=== PATIENT | female | born 1955 | race Hispanic/Latino ===

== ENCOUNTER 2020-05-17 16:02 | Emergency (ER) | payer OTHER, SELFPAY ==
[2020-05-17] MEDS ORDERED: Ondansetron ODT 4 MG TAB ONE (16:21)
[2020-05-17 16:41] LABS: Bilirubin Negative (Negative); Blood, Urine Trace (Negative); Clarity Cloudy (Clear); Glucose, Urine (Dipstick) Negative (Negative); Ketone, Urine Negative (Negative); Leukocyte Trace (Negative); Nitrite Positive (Negative); Protein, Urine (Dipstick) Negative (Neg-Trace); Specific Gravity, Urine 1.025 (1.005-1.030); Urobilinogen 0.2 mg/dL (Less than 2)
--- NOTE | 2020-05-17 16:42 | CT ---
EXAM: CT Lumbar Spine WO Con PROVIDED CLINICAL HISTORY: Low back pain COMPARISON: None FINDINGS: 5 nonrib-bearing lumbar-type vertebral bodies are demonstrated. There is slight retrolisthesis of L1 on L2 and L2 on L3. Vertebral body heights appear preserved. There is no evidence for fracture. Disc space height loss and endplate degenerative changes are seen at multiple levels, most conspicuou sly at L4-5. Lower lumbar spine facet arthritis changes are demonstrated. There is mild foraminal narrowing right of midline at L4-5 and L5-S1. No high-grade central canal stenosis is apparent by CT. The visualized extraspinal soft tissues demonstrate an unremarkable unenhanced CT appearance. IMPRESSION: Lumbar spine degenerative change, without evidence for an acute osseous abnormality.
[2020-05-17 16:43] LABS: Bacteria/HPF 3+ HPF (None Seen); RBC/HPF 0-3 HPF (0-3); Renal Epithelial 0-3 HPF (None Seen); Squamous Epithelial 0-3 HPF (0-3)
[2020-05-17] MEDS ORDERED: Cyclobenzaprine 10 MG TAB ONE (17:38)
== END 2020-05-17 17:40 | disposition home or self-care (01) ==
LOC: BURERS 16:02 → EDBD 16:02 → BURERS 17:40
DX: M54.5 Low back pain (principal); V43.62XA Car passenger injured in collision with other type car in traffic accident, initial encounter
CPT/HCPCS: 72131; 81003; 81015; 87077; 87086; 87186; Q0162